=== PATIENT | female | born 2000 | race Caucasian/White ===

== ENCOUNTER → 2020-06-09 12:01 | Outpatient (CLI) | payer OTHER, SELFPAY ==
--- NOTE | 2020-06-09 | DI.US.S_ITS ---
PROCEDURE: US EXTREMITY NONVASC LOWER RT INDICATIONS: KNEE MASS TECHNIQUE: Real-time scanning was performed of the area of interest, with image documentation. COMPARISON: None. FINDINGS: Ultrasound was performed of the area of interest. There is a 1.5 x 0.9 x 1.5 cm well circumscribed, hypoechoic, heterogeneous mass inferior to patella, correlating with the palpable mass. On Doppler ultrasound, there is no visible vascularity. IMPRESSION: A 1.5 x 0.9 x 1.5 cm heterogeneous mass inferior to patella where a palpable abnormality which was felt by the patient. On Doppler ultrasound, there is no visible internal vascularity. It is most likely a hematoma, but a low-grade neoplastic mass cannot be excluded. Please correlate clinically. If clinically indicated, MRI with and without contrast or percutaneous biopsy under ultrasound guidance may be obtained. Dictated by: Joseph Galloway M.D. on 06/09/2020 at 20:03 Approved by: Joseph Galloway M.D. on 06/10/2020 at 9:20
== END ==
PROVIDERS: Family Provider Nurse Practitioner; PCP Family Medicine; Referring Provider Nurse Practitioner Family; Visit Provider Nurse Practitioner Family
DX: R22.41 Localized swelling, mass and lump, right lower limb (principal)
CPT/HCPCS: 76882